=== PATIENT | female | born 1940 | race Caucasian/White ===

== ENCOUNTER 2020-08-27 04:11 | Emergency (ER) | payer MEDICARE ==
[~2020-08-27] VITALS: Ht 167.7 cm; Wt 67.0 kg
--- NOTE | 2020-08-27 04:25 | ED Hip Pain/Injury ---
General Chief Complaint: Hip/Pelvic Problems Stated Complaint: BACK & HIP PAIN,FALL 2 WKS AGO Source: patient Exam Limitations: no limitations History of Present Illness Date Seen by Provider: Aug 27, 2020 Time Seen by Provider: 04:11 Initial Comments Patient to the ER by private conveyance with her and chief complaint of pain down her right buttock into her right leg above the right knee. She has had multiple imaging of her low back in the past showing only scoliosis. She has had her right hip replaced and has plans to have her left hip replaced. She recently spent [address] from [facility] to here and she says occasionally when that happens she will get a flare of this pain. She has used some Tylenol as well as a tramadol with only minimal relief of pain. She says in the past muscle relaxants have worked the best. No saddle anesthesia, loss of control of bowel or bladder, weakness falls or trauma. Allergies and Home Medications Allergies Coded Allergies: Penicillins (Verified Allergy, Unknown, 08/27/20) Patient Home Medication List Home Medication List Reviewed: Yes Review of Systems Constitutional: No chills, No diaphoresis EENTM: No ear discharge, No ear pain Respiratory: No cough, No short of breath Cardiovascular: No chest pain, No edema Gastrointestinal: No abdominal pain, No nausea Genitourinary: No discharge, No dysuria Musculoskeletal: see HPI, back pain; No joint pain All Other Systems Reviewed Negative Unless Noted: Yes Past Vmgarrc-Phxwlo-Xjoljo Hx Patient Social History Tobacco Use?: No Use of E-Cig and/or Vaping dev: No Substance use?: No Alcohol Use?: Yes Alcohol Frequency: Once in a while Physical Exam Vital Signs Capillary Refill : Height, Weight, BMI Height: '" Weight: lbs. oz. kg; BMI Method: General Appearance: WD/WN, Moderate Distress HEENT: PERRL/EOMI, Pharynx Normal, Moist Mucous Membranes Neck: Full Range of Motion, Normal Inspection Cardiovascular: Regular Rate, Rhythm, No Edema, Normal Peripheral Pulses Respiratory: No Accessory Muscle Use, No Respiratory Distress Back: Normal Inspection, No Vertebral Tenderness Extremity: Normal Capillary Refill, Normal Inspection, Other (Tenderness to palpation over the L5-S1 facet joint right side. Reproduces pain lancinating gan down the back of the right leg.) Neurologic/Psychiatric: Alert, Oriented x3, No Motor/Sensory Deficits Skin: Normal Color, Warm/Dry Progress/Results/Core Measures Results/Orders My Orders Orders - PRABHJOT CANTU Ketorolac Injection (Toradol Injection) (08/27/20 04:30) Orphenadrine Inj (Ed Only) (Norflex Inje (08/27/20 04:30) Progress Progress Note : Time: 04:28 Progress Note Sciatica. Plan to give dose of Toradol, Norflex and put her out with a Medrol Dosepak and naproxen and cyclobenzaprine. Departure Impression Primary Impression: Sciatica of right side Disposition: HOME, SELF-CARE Condition: Stable Departure-Patient Inst. Decision time for Depature: 04:29 Referrals: NO,LOCAL PHYSICIAN (PCP/Family) Primary Care Physician Patient Instructions: Sciatica (DC), Sciatica Exercises Add. Discharge Instructions: Review the stretching exercises in the handout. Apply heat judiciously to reduce pain in your hip. Tylenol 1000 mg every 8 hours as necessary for pain. Use ibuprofen or the naproxen as prescribed. Naproxen 500 mg twice a day as necessary for pain. Continue to use topical creams such as Salonpas, icy hot, Biofreeze etc. Cyclobenzaprine 1 tablet every 8 hours as necessary for muscle spasms. Will cause drowsiness. shop supervisor the Medrol Dosepak and take as prescribed to reduce inflammation in your back and improve your pain. Follow-up with your doctor for continued management of your symptoms. Return to the nearest ER for worsening symptoms. All discharge instructions reviewed with patient and/or family. Voiced understanding. Scripts Naproxen (Naprosyn) 500 Mg Tablet 500 MG PO BID, #30 TAB 0 Refills Prov: PRABHJOT CANTU 08/27/20 Cyclobenzaprine HCl (Cyclobenzaprine HCl) 10 Mg Tablet 10 MG PO Q8H PRN for SPASMS, #20 TAB 0 Refills Prov: PRABHJOT CANTU 08/27/20 PRABHJOT CANTU Aug 27, 2020 04:25
[2020-08-27] MEDS ORDERED: ORPHENADRINE 60 MG/2 ML (NORFLEX) AMP (ED ONLY) IM ONE (04:30)
[2020-08-27] MEDS ORDERED: KETOROLAC 60 MG/2 ML VIAL IM ONE (04:30)
[2020-08-27] MEDS ORDERED: NAPR-1071 PO (04:32)
[2020-08-27] MEDS ORDERED: CYCL10TA9 PO (04:32)
[2020-08-27 04:58] VITALS: BP 139/81
== END 2020-08-27 04:58 | disposition home or self-care (01) ==
LOC: ER 04:20
DX: M54.31 Sciatica, right side (principal)
CPT/HCPCS: 99284